=== PATIENT | male | born 2000 | race Caucasian/White ===

== ENCOUNTER 2019-04-22 12:09 | Outpatient (CLI) | payer BC ==
--- NOTE | 2019-04-22 14:08 | RAD ---
TWO VIEW CHEST: INDICATION: Pneumothorax. FINDINGS: There are no comparison studies. A small-caliber chest tube overlies the left mid lung. Both lungs appear well expanded. No evidence of significant pneumothorax identified. No effusion or infiltrate. Heart and mediastinum unremarka ble. Osseous structures unremarkable. IMPRESSION: No evidence of pneumothorax or other acute process. POS: [facility]
== END 2019-04-22 12:10 | disposition home or self-care (01) ==
LOC: RAD 12:09
PROVIDERS: ATTEND Thoracic Surgery (Cardiothoracic Vascular Surgery)
DX: J93.9 Pneumothorax, unspecified (principal)
CPT/HCPCS: 71046

== ENCOUNTER 2021-03-31 20:57 | Emergency (ER) | payer BC ==
[2021-03-31] MEDS ORDERED: Acetaminophen 325 MG TAB ONE (22:27)
[2021-03-31] MEDS ORDERED: Ketorolac Tromethamine 30 MG/ML VIAL ONE (22:27)
== END 2021-03-31 23:10 | disposition home or self-care (01) ==
LOC: ERS 20:57
DX: M62.830 Muscle spasm of back (principal); F17.200 Nicotine dependence, unspecified, uncomplicated; Z79.1 Long term (current) use of non-steroidal anti-inflammatories (NSAID)
CPT/HCPCS: 71045; 96372; J1885